=== PATIENT | male | born 1990 | race Caucasian/White ===

== ENCOUNTER 2018-09-19 22:05 | Emergency (ER) | payer BC, OTHER ==
[~2018-09-19 22:05] MED LIST: Iopamidol 370 76% 125 ML VIAL FS ONE
[2018-09-19] MEDS ORDERED: Pantoprazole 40 MG VIAL ONE (22:29)
[2018-09-19] MEDS ORDERED: Morphine 4 MG/ML VIAL ONE (22:29)
[2018-09-19] MEDS ORDERED: Sodium Chloride 0.9% 1,000 ML ONE (22:29)
--- NOTE | 2018-09-19 22:42 | RAD ---
PORTABLE CHEST: 09/19/18 HISTORY: Chest pain. Lungs are clear. Heart size is normal. Vascularity normal. IMPRESSION: No acute finding. POS: [facility]
[2018-09-19 23:13] LABS: #Basophils 0.1 thou/uL (0.0-0.2); #Eosinphils 0.3 thou/uL (0.0-0.7); #Lymphocytes 1.8 thou/uL (1.20-3.40); #Monocytes 0.8 thou/uL (0.11-0.59); #Neutrophils 3.6 thou/uL (1.40-6.50); %Basophils 1.7 % (0.0-1.0); %Eosinophils 5.2 % (0.0-10.0); %Lymphocytes 27.4 % (21.0-51.0); %Monocytes 11.5 % (0.0-10.0); %Neutrophils 54.3 % (42.0-75.0); Hemoglobin 13.3 g/dL (14.0-18.0); Mean Corpuscular HGB CONC 33.9 g/dL (32.0-36.0); Mean Corpuscular Hemoglobin 31.7 pg (27.0-31.0); Mean Corpuscular Volume 93.6 fL (78.0-98.0); Mean Platelet Volume 7.5 fL (7.4-10.4); Platelet Count 242 thou/uL (130-400); RBC Distribution Width 10.8 % (11.5-14.5); Red Blood Cell (RBC) Count 4.18 mill/uL (4.70-6.10); White Blood Cell (WBC) Count 6.6 thou/uL (4.8-10.8)
[2018-09-19 23:27] LABS: ALT (SGPT) 12 U/L (8-55); AST (SGOT) 18 U/L (5-34); Albumin 4.5 g/dL (3.5-5.0); Alkaline Phosphatase 57 U/L (40-150); Anion Gap 13 mmol/L (10-20); BUN (Urea Nitrogen) 14 mg/dL (8.9-20.6); Bilirubin, Total 0.5 mg/dL (0.2-1.2); CK (CPK) 143 U/L (30-200); Calc. Creatinine Clearance 0 mL/min (70-130); Calcium 9.5 mg/dL (7.8-10.44); Carbon Dioxide 25 mmol/L (22-29); Chloride 106 mmol/L (98-107); Estimated GFR-MDRD Greater than 90; Globulin 2.9 g/dL (2.4-3.5); Glucose 128 mg/dL (70-105); Lipase 13 U/L (8-78); Potassium 3.5 mmol/L (3.5-5.1); Protein, Total 7.4 g/dL (6.0-8.3); Sodium 140 mmol/L (136-145)
[2018-09-20] MEDS ORDERED: Lidocaine Viscous Sol 2% 15 ml UD Cup ONE (01:00)
[2018-09-20] MEDS ORDERED: Ketorolac Tromethamine 30 MG/ML VIAL ONE (01:00)
[2018-09-20] MEDS ORDERED: Mag-Al Plus 1200 MG/1200 MG/120 MG/30 ML UDCUP ONE (01:00)
[2018-09-20] MEDS ORDERED: Morphine 4 MG/ML VIAL ONE (01:54)
--- NOTE | 2018-09-20 08:25 | CT ---
PRELIMINARY REPORT/[facility]/EMERGENCY AFTER HOURS PROCEDURE: EXAM: CT Angiography Chest With Contrast EXAM DATE/TIME: 09/19/2018 11:45 PM CLINICAL HISTORY: 28 years old, male; Pain; Other: Chest/ abd; Patient HX: PT had chest reconstruction TECHNIQUE: Imaging protocol: Axial computed tomographic angiography images of the chest with intravenous contras t using CT angiography protocol. COMPARISON: No relevant prior studies available. FINDINGS: Pulmonary arteries: No evidence of pulmonary embolism. Aorta: No acute findings. No aortic aneurysm or dissection. Lungs: No consolidation. No masses. Pleural space: No pneumothorax. No pleural effusion. Heart: No cardiomegaly. No pericardial effusion. Lymph nodes: No significant adenopathy. Bones/joints: No acute fracture. Pectus excavatum deformity sternal postsurgical changes. Soft tissues: No acute findings. IMPRESSION: No acute findings. EXAM: CT Angiography Abdomen With Contrast EXAM DATE/TIME: 09/19/2018 11:45 PM CLINICAL HISTORY: 28 years old, male; Pain; Other: Chest/ abd; Patient HX: PT had chest reconstruction TECHNIQUE: Imaging protocol: Axial computed tomographic angiography images of the abdomen with intravenous contr ast material. 3D renderinD reconstructed images were created and reviewed. Radiation optimization: All CT scans at this facility use at least one of these dose optimization roverto hniques: automated exposure control; mA and/or kV adjustment per patient size (includes targeted exam s where dose is matched to clinical indication); or iterative reconstruction. Contrast material: ISOVUE; Contrast volume: 100 ml; Contrast route: LT ARM; COMPARISON: No relevant prior studies available. FINDINGS: Lungs: Unremarkable. No consolidation. VASCULATURE: Aorta: No acute findings. No aortic aneurysm. No aortic dissection. Celiac trunk and mesenteric arteries: Indentation of the celiac trunk by diaphragmatic heidi. Otherwise no occlusion or significant stenosis. Renal arteries: No acute findings. No occlusion or significant stenosis. ABDOMEN: Liver: No acute findings. No mass. Gallbladder and bile ducts: No calcified stones. No ductal dilation. Pancreas: No acute findings. No ductal dilation. Spleen: No acute findings. No splenomegaly. Adrenals: No mass. Kidneys and ureters: No acute findings. No hydronephrosis. Stomach and bowel: Partially visualized fecal colonic loading and fluid-filled nonspecific small bowel loops. Intraperitoneal space: No free air. No significant fluid collection. Bones/joints: No acute fracture. No dislocation. Soft tissues: No acute findings. Lymph nodes: No acute findings. No enlarged lymph nodes. IMPRESSION: No acute findings. Indentation of the celiac trunk by diaphragmatic heidi which could relate to celiac artery compression syndrome or expiratory imaging. Thank you for allowing us to participate in the care of your patient. Dictated and Authenticated by: Adan Reza MD 09/20/2018 1:44 AM Central Time ([place] & [place]) FINAL REPORT CT ANGIOGRAM OF THORACIC AORTA CT ANGIOGRAM OF ABDOMINAL AORTA: Date: 09/19/18 HISTORY: Pain. COMPARISON: None. TECHNIQUE: CT angiogram of thoracic and abdominal aorta performed in the axial plane. 3D reformatted images are submitted for interpretation. FINDINGS: This report is in agreement with the preliminary report by Steven. No aneurysm. No dissection. Visualiz ed mediastinum and lung parenchyma are unremarkable. Appropriate enhancement in the visualized solid organs. Symmetric enhancement of the kidneys. Adequate contrast opacification of the central pulmonar y arterial systems. No filling defect to suggest thromboembolism to the level of the lobar arteries. The celiac artery origin, superior mesenteric artery origin, bilateral renal artery ostia, and inferi or mesenteric artery origin are unremarkable. IMPRESSION: Unremarkable CT angiogram. POS: OFF
== END 2018-09-20 03:19 | disposition home or self-care (01) ==
LOC: MADERS 22:05
DX: R10.13 Epigastric pain (principal); F41.9 Anxiety disorder, unspecified; Z79.899 Other long term (current) drug therapy
CPT/HCPCS: 71045; 71275; 80053; 82550; 83690; 84484; 85025; 85379; 93005; 96361; 96374; 96375; 96376; C9113; J1885; J2270; J7050; Q9967

== ENCOUNTER 2019-01-03 20:59 | Emergency (ER) | payer BC ==
[2019-01-03] MEDS ORDERED: Ketorolac Tromethamine 30 MG/ML VIAL ONE (21:21)
--- NOTE | 2019-01-03 21:38 | RAD ---
XR Chest Pa Lat STANDARD HISTORY: Chest pain COMPARISON: 02/02/2017 study FINDINGS: Heart size and mediastinum are within normal limits. The lungs are clear of any infiltrativ e process. Postoperative changes with metallic hardware again noted. IMPRESSION: No active intrathoracic disease.
== END 2019-01-03 22:08 | disposition home or self-care (01) ==
LOC: MADERS 20:59
DX: R07.9 Chest pain, unspecified (principal); F41.9 Anxiety disorder, unspecified; F17.290 Nicotine dependence, other tobacco product, uncomplicated
CPT/HCPCS: 71046; 93005; 96374; J1885

== ENCOUNTER 2019-02-20 05:33 | Emergency (ER) | payer BC ==
[2019-02-20] MEDS ORDERED: Ketorolac Tromethamine 60 MG/2 ML VIAL ONE (05:58)
== END 2019-02-20 07:13 | disposition home or self-care (01) ==
LOC: MADERS 05:33
DX: R07.9 Chest pain, unspecified (principal); F41.9 Anxiety disorder, unspecified; F17.290 Nicotine dependence, other tobacco product, uncomplicated; Z79.891 Long term (current) use of opiate analgesic; Z79.899 Other long term (current) drug therapy
CPT/HCPCS: 93005; 96372; J1885

== ENCOUNTER 2020-06-10 03:22 | Emergency (ER) | payer SELFPAY ==
[2020-06-10 04:09] LABS: Bilirubin Negative (Negative); Blood, Urine Negative (Negative); Clarity Clear (Clear); Glucose, Urine (Dipstick) Negative (Negative); Ketone, Urine Negative (Negative); Leukocyte Negative (Negative); Nitrite Negative (Negative); Protein, Urine (Dipstick) Negative (Neg-Trace); Specific Gravity, Urine 1.025 (1.002-1.036)
[2020-06-10] MEDS ORDERED: Lidocaine 1% 20 ML MDV ONE (04:15)
[2020-06-10] MEDS ORDERED: HYDROcodone/Acetaminophen 10/325 mg Tablet ONE (06:20)
== END 2020-06-10 06:32 | disposition short-term general hospital (02) ==
LOC: MADERS 03:22
DX: N48.30 Priapism, unspecified (principal); K21.9 Gastro-esophageal reflux disease without esophagitis; F17.290 Nicotine dependence, other tobacco product, uncomplicated
CPT/HCPCS: 81003; 99284

== ENCOUNTER 2023-10-16 22:12 | Emergency (ER) | payer OTHER, SELFPAY ==
[2023-10-16 22:36] LABS: #Basophils 0.1 thou/uL (0.0-0.2); #Eosinphils 0.1 thou/uL (0.0-0.7); #Lymphocytes 2.5 thou/uL (1.20-3.40); #Monocytes 0.5 thou/uL (0.11-0.59); #Neutrophils 2.3 thou/uL (1.40-6.50); %Basophils 1.7 % (0.0-1.0); %Eosinophils 2.4 % (0.0-10.0); %Lymphocytes 45.3 % (21.0-51.0); %Monocytes 8.4 % (0.0-10.0); %Neutrophils 42.2 % (42.0-75.0); Hematocrit 40.1 % (42.0-52.0); Hemoglobin 13.6 g/dL (14.0-18.0); Mean Corpuscular HGB CONC 33.8 g/dL (32.0-36.0); Mean Corpuscular Hemoglobin 31.9 pg (27.0-31.0); Mean Corpuscular Volume 94.2 fl (78.0-98.0); Mean Platelet Volume 7.7 fL (7.4-10.4); Platelet Count 203 10x3/uL (130-400); RBC Distribution Width 10.8 % (11.5-14.5); Red Blood Cell (RBC) Count 4.26 mill/uL (4.70-6.10); White Blood Cell (WBC) Count 5.5 10x3/uL (4.8-10.8)
[2023-10-16] MEDS ORDERED: Sodium Chloride 0.9% 1,000 ML ONE (22:55)
[2023-10-16] MEDS ORDERED: Ondansetron PF 4 MG/2 ML Vial ONE (22:55)
[2023-10-16] MEDS ORDERED: Ketorolac Tromethamine 30 MG (1 mL) VIAL ONE (22:55)
[2023-10-16 22:57] LABS: ALT (SGPT) 15 U/L (8-55); AST (SGOT) 17 U/L (5-34); Albumin 4.2 g/dL (3.5-5.0); Alkaline Phosphatase 55 U/L (40-110); Anion Gap 18 mmol/L (10-20); BUN (Urea Nitrogen) 26 mg/dL (8.9-20.6); Bilirubin, Total 0.3 mg/dL (0.2-1.2); Calc. Creatinine Clearance 0 mL/min (70-130); Calcium 9.4 mg/dL (7.8-10.44); Carbon Dioxide 20 mmol/L (22-29); Chloride 108 mmol/L (98-107); Estimated GFR 88; Globulin 2.1 g/dL (2.4-3.5); Glucose 128 mg/dL (70-105); Lipase 22 U/L (8-78); Potassium 3.7 mmol/L (3.5-5.1); Protein, Total 6.3 g/dL (6.0-8.3); Sodium 142 mmol/L (136-145)
[2023-10-16 23:03] LABS: Troponin I Less than 0.010 ng/mL (< 0.028)
== END 2023-10-16 23:53 | disposition home or self-care (01) ==
LOC: MADERS 22:12
DX: R10.12 Left upper quadrant pain (principal); F17.290 Nicotine dependence, other tobacco product, uncomplicated
CPT/HCPCS: 71045; 80053; 83690; 84484; 85025; 93005; 96374; 96375; J1885; J2405; J7050

== ENCOUNTER 2024-01-14 19:41 | Emergency (ER) | payer OTHER ==
[2024-01-14] MEDS ORDERED: Ibuprofen 200 MG TAB ONE (20:16)
== END 2024-01-14 20:22 | disposition home or self-care (01) ==
LOC: MADERS 19:41
DX: J06.9 Acute upper respiratory infection, unspecified (principal); F17.290 Nicotine dependence, other tobacco product, uncomplicated
CPT/HCPCS: 99283

== ENCOUNTER 2024-05-23 13:58 | Emergency (ER) | payer OTHER ==
[2024-05-23] MEDS ORDERED: predniSONE 20 MG TAB ONE (14:32)
[2024-05-23] MEDS ORDERED: Doxycycline 100 MG CAP ONE (14:32)
== END 2024-05-23 14:49 | disposition home or self-care (01) ==
LOC: MADERS 13:58
DX: J01.90 Acute sinusitis, unspecified (principal); K21.9 Gastro-esophageal reflux disease without esophagitis; F17.290 Nicotine dependence, other tobacco product, uncomplicated
CPT/HCPCS: 99283; J7512